=== PATIENT | male | born 1970 ===

== ENCOUNTER 2022-10-01 19:50 | Emergency (ER) | payer MEDICAID ==
[~2022-10-01] VITALS: Ht 177.8 cm; Wt 81.6 kg
--- NOTE | 2022-10-01 22:00 | NUR ---
Dr. Guaman at bedside. MSE in progress.
[2022-10-01 22:55] LABS: HEMATOCRIT 40.9 % (36.7-47.1); MEAN CORPUSCULAR HEMOGLOBIN 30.5 uug (23.8-33.4); MEAN CORPUSCULAR VOLUME 90.1 fL (73.0-96.2); PLATELET COUNT (AUTO) 255 K/uL (152-348)
[2022-10-01 23:06] LABS: CREATININE 2.2 mg/dL (0.6-1.3); POTASSIUM 4.2 mmol/L (3.5-5.1)
[2022-10-01 23:53] LABS: *BILIRUBIN,URIN NEGATIVE (NEGATIVE); *BLOOD, URINE 2+ (NEGATIVE); *KETONES,URINE NEGATIVE (NEGATIVE); *UROBILINOGEN,URINE 0.2 E.U./dl (NORMAL); LEUKOCYTE ESTERASE ,URINE NEGATIVE (NEGATIVE); NITRITE, URINE NEGATIVE (NEGATIVE); UGLUCOSE NEGATIVE (NEGATIVE)
[2022-10-02 00:08] LABS: BACTERIA,URINE FEW /HPF (NONE SEEN); SQUAMOUS EPITHELIAL CELL,UR FEW /HPF (NONE SEEN); URINE AMORPHOUS URATE MANY /HPF; WBC,URINE NONE SEEN /HPF (0-3)
[2022-10-02 00:11] LABS: *CLARITY,URINE SLIGHTLY CLOUDY (CLEAR); *COLOR,URINE LIGHT YELLOW (YELLOW)
[2022-10-02 00:13] LABS: *AMPHETAMINE, URINE POSITIVE (NEGATIVE); *CANNABINOID, URINE POSITIVE (NEGATIVE); *COCCAINE, URINE POSITIVE (NEGATIVE); *PHENCYCLIDINE SCREEN,URINE NEGATIVE (NEGATIVE)
[2022-10-02] MEDS ORDERED: LORA0.5T48 PO (01:05)
[2022-10-02] MEDS ORDERED: LORAZEPAM 0.5 MG TABLET PO ONE (01:15)
[2022-10-02] MEDS ORDERED: LORAZEPAM 1 MG TABLET ONE (01:24)
--- NOTE | 2022-10-02 01:39 | NUR ---
Patient discharged to home in stable condition. Written and verbal after care instructions given. Patient verbalizes understanding of instructions. Stressed follow up or return to ER for worsening s/s. Patient walked out with steady gait.
[2022-10-02 02:26] VITALS: BP 122/95; TEMP 97.5; O2SAT 98
== END 2022-10-02 01:40 | disposition home or self-care (01) ==
LOC: ER 19:50
DX: F14.10 Cocaine abuse, uncomplicated (principal); F15.10 Other stimulant abuse, uncomplicated; F22 Delusional disorders; Z79.899 Other long term (current) drug therapy
CPT/HCPCS: 36415; 85025; A4663